=== PATIENT | female | born 1970 | race Caucasian/White ===

== ENCOUNTER 2023-11-29 04:08 | Day surgery (SDC) | payer OTHER ==
[2023-11-25 12:31] VITALS: BMI 35.1
[2023-11-29] MEDS ORDERED: MIDAZOLAM HCL 2 MG/2 ML SINGLE DOSE VIAL ONE (07:57)
[2023-11-29] MEDS ORDERED: ONDANSETRON 4 MG/2 ML VIAL ONE (08:33)
[2023-11-29] MEDS ORDERED: ONDANSETRON 4 MG/2 ML VIAL IVPUSH PRN (08:56)
[2023-11-29 09:00] VITALS: RESP 18
[2023-11-29] MEDS ORDERED: ONABOTULINUMTOXINA 200 UNIT/VIAL VIAL NR ONE (09:00)
[2023-11-29] MEDS ORDERED: LACTATED RINGERS SOLUTION 1,000 ML IV SCH (09:00)
[2023-11-29] MEDS ORDERED: ACETAMINOPHEN INJECTION 0 ML ONE (09:04)
[2023-11-29] MEDS ORDERED: ACETAMINOPHEN 500 MG TABLET (FP) ONE (09:29)
[2023-11-29] MEDS: ACETAMINOPHEN 500 MG TABLET (FP) PO ONE (09:34)
[2023-11-29 10:02] VITALS: TEMP 98.4
[2023-11-29 10:15] VITALS: BP 136/74; PULSE 62
== END 2023-11-29 10:10 | disposition home or self-care (01) ==
LOC: JASU-SURG 04:08
PROVIDERS: ATTEND Surgery
PROC: 3E023GC Introduction of Other Therapeutic Substance into Muscle, Percutaneous Approach (ICD-10-PCS; principal; 2023-11-29 08:00)
DX: K43.9 Ventral hernia without obstruction or gangrene (principal); M62.059 Separation of muscle (nontraumatic), unspecified thigh
CPT/HCPCS: 81025; 94760; J0131

== ENCOUNTER 2024-01-12 05:28 | Day surgery (SDC) | payer OTHER ==
[2024-01-07 14:13] VITALS: BMI 35.6
[2024-01-12] MEDS: cefOXitin SODIUM 1 GM VIAL (RESTRICTED TO ID) IVPB ONE
[2024-01-12] MEDS ORDERED: ROCURONIUM BROMIDE 50 MG/5 ML SYRINGE ONE ×3 (10:10→18:37)
[2024-01-12] MEDS ORDERED: MIDAZOLAM HCL 2 MG/2 ML SINGLE DOSE VIAL ONE (10:10)
[2024-01-12] MEDS ORDERED: DEXAMETHASONE SOD PHOSPHATE 4 MG/1 ML VIAL ONE (10:10)
[2024-01-12] MEDS ORDERED: PROPOFOL 20 ML ONE (10:26)
[2024-01-12 10:52] LABS: POTASSIUM 4.1 mmol/L (3.5-5.1)
[2024-01-12] MEDS ORDERED: BUPIVACAINE HCL/PF 0.25% (2.5MG/ML) 10 ML VIAL ONE (10:55)
[2024-01-12 10:56] LABS: ALBUMIN 3.9 g/dl (3.4-5.0); CALCIUM 9.2 mg/dL (8.5-10.1)
[2024-01-12] MEDS ORDERED: cefOXitin SODIUM 2 GM VIAL (RESTRICTED TO ID) IVPB ONE (10:56)
[2024-01-12] MEDS ORDERED: HEPARIN NA (PORCINE) 5,000 UNITS/ML 1ML VIAL ONE (10:56)
[2024-01-12 10:57] LABS: BLOOD UREA NITROGEN 14.6 mg/dL (7-18)
[2024-01-12 10:59] LABS: CREATININE 0.9 mg/dL (0.55-1.3)
[2024-01-12 11:01] LABS: BILIRUBIN,TOTAL 0.9 mg/dL (0.2-1); TOT PROT 7.1 g/dl (6.4-8.2)
[2024-01-12] MEDS: ceFAZolin SODIUM 1 GM VIAL IVPB ONE (12:17)
[2024-01-12] MEDS: BUPIVACAINE HCL/PF 0.25% (2.5MG/ML) 10 ML VIAL IJ ONE ×3 (12:28)
[2024-01-12] MEDS ORDERED: HYDROmorphone HCl 2 MG/ML VIAL ONE ×2 (12:28→18:37)
[2024-01-12] MEDS ORDERED: ePHEDrine SULFATE 50 MG/1 ML AMPULE ONE (13:01)
[2024-01-12] MEDS ORDERED: ceFAZolin SODIUM 1 GM VIAL ONE (16:27)
[2024-01-12] MEDS ORDERED: NEOSTIGMINE METHYLSULFATE 0.5 MG/1 ML - 10 ML MDV ONE (18:55)
[2024-01-12] MEDS ORDERED: GLYCOPYRROLATE 0.2 MG/1 ML VIAL ONE (18:55)
[2024-01-12] MEDS ORDERED: KETOROLAC TROMETHAMINE 30 MG/1 ML VIAL ONE (18:56)
[2024-01-12] MEDS ORDERED: ONDANSETRON 4 MG/2 ML VIAL ONE (18:56)
[2024-01-12] MEDS ORDERED: DOCUSATE SODIUM 100 MG CAPSULE (FP) PO PRN (19:36)
[2024-01-12] MEDS ORDERED: oxyCODONE HCL 5 MG TABLET PO PRN ×2 (19:36)
[2024-01-12] MEDS ORDERED: PROMETHAZINE HCL 25 MG/1 ML VIAL IVPB PRN (19:39)
[2024-01-12] MEDS ORDERED: ONDANSETRON 4 MG/2 ML VIAL IVPUSH PRN (19:39)
[2024-01-12] MEDS: LACTATED RINGERS SOLUTION 1,000 ML IV SCH (19:59)
[2024-01-12 21:51] VITALS: RESP 18
[2024-01-13] MEDS: ACETAMINOPHEN 1000 MG/100 ML BAG IVPB SCH (01:05)
[2024-01-13] MEDS: LEVOTHYROXINE NA 75 MCG TABLET (FP) PO SCH (06:27)
[2024-01-13 09:51] LABS: HEMATOCRIT 35.7 % (32.4-45.2); HEMOGLOBIN 12.6 GM/dL (10.7-15.3); MCH 32.7 pg (25.7-33.7); MCHC 35.4 g/dl (32.0-36.0); MEAN CELL VOLUME 92.4 fl (80-96); PLATELET COUNT 182 10^3/uL (134-434); RBC 3.87 M/mm3 (3.60-5.2); RDW 13.4 % (11.6-15.6); WHITE BLOOD COUNT 9.3 K/mm3 (4.0-10.0)
[2024-01-13] MEDS ORDERED: PROPARACAINE 0.5% OPHTH SOLN 15 ML BTL OD SCH (10:00)
[2024-01-13] MEDS: KETOROLAC TROMETHAMINE 30 MG/1 ML VIAL IVPUSH PRN (10:07)
[2024-01-13 10:10] LABS: POTASSIUM 4.2 mmol/L (3.5-5.1)
[2024-01-13 10:13] LABS: CALCIUM 8.6 mg/dL (8.5-10.1)
[2024-01-13 10:14] LABS: ALBUMIN 3.2 g/dl (3.4-5.0)
[2024-01-13 10:17] LABS: BLOOD UREA NITROGEN 19.1 mg/dL (7-18); CREATININE 0.9 mg/dL (0.55-1.3)
[2024-01-13 10:19] LABS: BILIRUBIN,TOTAL 1.2 mg/dL (0.2-1); TOT PROT 5.7 g/dl (6.4-8.2)
[2024-01-13] MEDS: CIPROFLOXACIN HCL 0.3% OPHTH 2.5ML BOTTLE OD SCH (10:39)
[2024-01-13 10:45] LABS: URINE APPEARANCE CLEAR; URINE BILIRUBIN NEGATIVE (NEGATIVE); URINE COLOR YELLOW; URINE GLUCOSE (UA) NEGATIVE (NEGATIVE); URINE KETONE NEGATIVE (NEGATIVE); URINE LEUK ESTERASE NEGATIVE (NEGATIVE); URINE NITRITE NEGATIVE (NEGATIVE); URINE PROTEIN NEGATIVE (NEGATIVE); URINE UROBILINOGEN 0.2 mg/dL (0.2-1.0)
[2024-01-13] MEDS: TETRACAINE 0.5% HCL 0.6ML DROPPER.BOTTLE OD ONE (11:17)
[2024-01-13] MEDS: PROPARACAINE 0.5% OPHTH SOLN 15 ML BTL OD ONE (11:38)
[2024-01-13] MEDS: ARTIFICIAL TEARS OPHTHALMIC DROPS OD PRN (13:29)
[2024-01-13 15:09] VITALS: BP 115/64; PULSE 70; TEMP 98.4
== END 2024-01-13 15:57 | disposition home or self-care (01) ==
LOC: JASU-SURG 05:28 → JASUSAT 05:28 → SUATTDRO 05:28 → J8W 22:52 → JASUSAT 01-13 15:57
PROVIDERS: ATTEND Nurse Practitioner Acute Care
PROC: 8E0W4CZ Robotic Assisted Procedure of Trunk Region, Percutaneous Endoscopic Approach (ICD-10-PCS; 2024-01-12)
PROC: 0WUF4JZ Supplement Abdominal Wall with Synthetic Substitute, Percutaneous Endoscopic Approach (ICD-10-PCS; principal; 2024-01-12 10:00)
DX: K43.9 Ventral hernia without obstruction or gangrene (principal); M62.08 Separation of muscle (nontraumatic), other site
CPT/HCPCS: 22999; 49595; S2900; 36415; 71045-TC-FY; 80053; 81003; 81025; 85027; 86850; 86900; 86901; 94760; C1781; J0131; J1644